=== PATIENT | male | born 1980 | race Hispanic/Latino ===

== ENCOUNTER 2018-03-17 10:26 | Emergency (ER) | payer BC ==
[2018-03-17] MEDS ORDERED: ALUM-MAG HYDROX-SIMETH 200-200-20MG/5ML PO ONE (10:41)
[2018-03-17] MEDS ORDERED: LIDOCAINE VISCOUS 2% PO ONE (10:41)
[2018-03-17] MEDS ORDERED: BENTYL PO ONE (10:41)
[2018-03-17] MEDS ORDERED: PROTONIX PO ONE (10:41)
--- NOTE | 2018-03-17 10:41 | Emergency Department Report ---
ED Abdominal Pain HPI - General Chief Complaint: Abdominal Pain Stated Complaint: STOAMCH PAIN Time Seen by Provider: 03/17/18 10:37 Source: patient Mode of arrival: Ambulatory Limitations: No Limitations - History of Present Illness Initial Comments: Mr. Gonzalez is a 37-year-old male who comes to the ER today complaining of diffuse abdominal pain with acute onset last Friday. He has no nausea vomiting or diarrhea. He does take Prilosec for his GERD. He states that this pain is not like his GERD it's more diffuse in nature. Patient has no fever. He is ambulatory. He is nontoxic in appearance. He had a normal BM this morning. MD Complaint: abdominal pain -: Gradual Location: diffuse Consistency: constant Improves With: nothing Worsens With: nothing Associated Symptoms: denies: nausea, vomiting, diarrhea, fever, chills, constipation, dysuria, hematemesis, hematochezia - Related Data Previous Rx's Medication Instructions Recorded Last Taken Type Ondansetron [Zofran Odt] 4 mg PO Q8HR PRN #10 tab.rapdis 03/17/18 Unknown Rx Allergies Allergy/AdvReac Type Severity Reaction Status Date / Time No Known Allergies Allergy Unverified 03/17/18 10:31 ED Review of Systems ROS: Stated complaint: STOAMCH PAIN Other details as noted in HPI Comment: All other systems reviewed and negative Constitutional: denies: see HPI Eyes: denies: as per HPI ENT: denies: throat pain Respiratory: denies: cough Cardiovascular: denies: palpitations Endocrine: denies: flushing Gastrointestinal: as per HPI, abdominal pain Genitourinary: denies: urgency Musculoskeletal: denies: back pain Skin: denies: rash Neurological: denies: weakness Psychiatric: denies: depression Hematological/Lymphatic: denies: as per HPI, easy bleeding ED Past Medical Hx - Past Medical History Previous Medical History?: No - Surgical History Past Surgical History?: No - Social History Smoking Status: Current Every Day Smoker - Medications Home Medications: Home Medications Medication Instructions Recorded Confirmed Last Taken Type Ondansetron [Zofran Odt] 4 mg PO Q8HR PRN #10 tab.rapdis 03/17/18 Unknown Rx ED Physical Exam - General Limitations: No Limitations General appearance: alert - Head Head exam: Present: atraumatic - Eye Eye exam: Present: normal appearance, PERRL Pupils: Present: normal accommodation - ENT ENT exam: Present: mucous membranes moist - Neck Neck exam: Present: normal inspection - Respiratory Respiratory exam: Present: normal lung sounds bilaterally - Cardiovascular Cardiovascular Exam: Present: regular rate - GI/Abdominal GI/Abdominal exam: Present: soft, normal bowel sounds. Absent: distended, tenderness, guarding, rebound, rigid, diminished bowel sounds - Rectal Rectal exam: Present: deferred - Extremities Exam Extremities exam: Present: normal inspection, full ROM - Back Exam Back exam: Present: normal inspection, full ROM - Neurological Exam Neurological exam: Present: alert, oriented X3 - Psychiatric Psychiatric exam: Present: normal affect, normal mood - Skin Skin exam: Present: warm, dry ED Course Vital Signs 03/17/18 03/17/18 03/17/18 10:31 11:40 12:20 Temperature 97.7 F Pulse Rate 64 68 Respiratory 18 16 16 Rate Blood Pressure 140/95 Blood Pressure 123/78 [Left] O2 Sat by Pulse 98 100 Oximetry 03/17/18 12:31 Temperature 98.7 F Pulse Rate Respiratory Rate Blood Pressure Blood Pressure [Left] O2 Sat by Pulse Oximetry ED Medical Decision Making - Lab Data Result diagrams: 03/17/18 10:56 03/17/18 10:56 - Medical Decision Making labs noted no n/v/d in ER no fever taking po ambulatory medicated with relief pts kids had gastroenteritis recently no abd pain on palpation. no cva tenderness. no tachycardia or hypotension. will dc home with conservative management and follow up with pcp should continue home prilosec Labs 03/17/18 03/17/18 03/17/18 10:51 10:56 10:56 WBC 13.0 H RBC 5.05 H Hgb 15.5 H Hct 45.5 MCV 90 MCH 31 MCHC 34 RDW 12.0 L Plt Count 317 Lymph % (Auto) 10.6 L [place] % (Auto) 3.2 Eos % (Auto) 0.2 Baso % (Auto) 0.7 Lymph # 1.4 [place] # 0.4 Eos # 0.0 Baso # 0.1 Seg Neutrophils % 85.3 H Seg Neutrophils # 11.1 H Sodium 139 Potassium 4.4 Chloride 98.6 Carbon Dioxide 30 Anion Gap 15 BUN 9 Creatinine 0.9 Estimated GFR > 60 BUN/Creatinine Ratio 10 Glucose 109 H Calcium 9.2 Total Bilirubin 0.20 AST 25 ALT 29 Alkaline Phosphatase 58 Total Protein 7.0 Albumin 4.2 Albumin/Globulin Ratio 1.5 Lipase 14 Urine Color Yellow Urine Turbidity Clear Urine pH 8.0 H Ur Specific [place] 1.018 Urine Protein 100 mg/dl Urine Glucose (UA) Neg Urine Ketones Neg Urine Blood Neg Urine Nitrite Neg Urine Bilirubin Neg Urine Urobilinogen < 2.0 Ur Leukocyte Esterase Neg Urine WBC (Auto) 1.0 Urine RBC (Auto) 2.0 Urine Bacteria (Auto) 1+ Urine Mucus Few Urine Sperm Few - Differential Diagnosis gastroenteritis v gerd Critical care attestation.: If time is entered above; I have spent that time in minutes in the direct care of this critically ill patient, excluding procedure time. ED Disposition Clinical Impression: GERD (gastroesophageal reflux disease), Abdominal pain Disposition: TO HOME OR SELFCARE Is pt being admited?: No Does the pt Need Aspirin: No Condition: Stable Instructions: Gastroenteritis (ED) Additional Instructions: HYDRATE WELL WITH WATER MEDS ORDERED TODAY IF NEEDED MOTRIN OR TYLENOL FOR PAIN OR FEVER BLAND DIET- BANANA, RICE, APPLESAUCE, TOAST ADVANCE TOLERATED FOLLOW UP PCP IF PERSISTS REFERRAL BELOW Prescriptions: Ondansetron [Zofran Odt] 4 mg PO Q8HR PRN #10 tab.rapdis PRN Reason: Vomiting Referrals: PRIMARY CAREMD [Primary Care Provider] - 3-5 Days MAIRA SHAH MD [Staff Physician] - 3-5 Days Time of Disposition: 12:24
[2018-03-17 11:18] LABS: Basophils # (Auto) 0.1 K/mm3 (0.0-0.1); Basophils % (Auto) 0.7 % (0.0-1.8); Eosinophils % (Auto) 0.2 % (0.0-4.3); Hematocrit 45.5 % (35.5-45.6); Hemoglobin 15.5 gm/dl (11.8-15.2); Lymphocytes # (Auto) 1.4 K/mm3 (1.2-5.4); Lymphocytes % (Auto) 10.6 % (13.4-35.0); Mean Corpuscular HGB Conc 34 % (32-34); Mean Corpuscular Volume 90 fl (84-94); Monocytes # (Auto) 0.4 K/mm3 (0.0-0.8); Monocytes % (Auto) 3.2 % (0.0-7.3); Platelet Count 317 K/mm3 (140-440); Red Blood Count 5.05 M/mm3 (3.65-5.03)
[2018-03-17 11:23] LABS: Bacteria,Urine 1+ /HPF (Negative); Bilirubin,Urine NEG (Negative); Blood,Urine NEG (Negative); Color,Urine Yellow (Yellow); Mucus,Urine FEW /HPF; Sperm,Urine FEW /HPF (NP); Urobilinogen,Urine < 2.0 mg/dL (<2.0)
[2018-03-17] MEDS ORDERED: NACL 0.9% 1000 ML 1,000 ML IV ONE (11:23)
[2018-03-17 11:27] LABS: Alanine Aminotransferase 29 units/L (7-56); Albumin 4.2 g/dL (3.9-5); BUN/Creatinine Ratio 10; Blood Urea Nitrogen 9 mg/dL (9-20); Calcium 9.2 mg/dL (8.4-10.2); Hemolysis Index 15
[2018-03-17 12:21] VITALS: BP 123/78
== END 2018-03-17 12:49 | disposition home or self-care (01) ==
LOC: ED 10:26
DX: K21.9 Gastro-esophageal reflux disease without esophagitis (principal); F17.200 Nicotine dependence, unspecified, uncomplicated
CPT/HCPCS: 36415; 80053; 81001; 83690; 85025; 99283; J7030